=== PATIENT | female | born 1995 | race Caucasian/White ===

== ENCOUNTER 2017-06-01 08:39 | Emergency (ER) | payer SELFPAY ==
[~2017-06-01] VITALS: Ht 160 cm; Wt 52.0 kg
[~2017-06-01 08:39] MED LIST: DOXY100T PO; Z.0.NO CURRENT MEDS
[2017-06-01 08:47] VITALS: BP 106/64; PULSE 60; RESP 16; TEMP 97.1; O2SAT 100
[2017-06-01 09:05] LABS: BLOOD, URINE NEG (NEG); GLUCOSE,URINE NEG (NEG); KETONE, URINE NEG (NEG); NITRITE,URINE NEG (NEG)
[2017-06-01 09:11] LABS: METHOD OF COLLECTION CLEAN CATCH
[2017-06-01 09:12] LABS: URINE COLOR YELLOW (YELLW/STRAW)
[2017-06-01 09:13] LABS: BACTERIA, URINE FEW /hpf; COMMENT (UR) CULTURE INDICATED; CULTURE IF INDICATED CULTURE INDICATED; RBC, URINE 0-3 /hpf (0-3); SQUAMOUS EPITHELIAL CELL URINE > 8 /hpf (0-5)
[2017-06-01 09:22] VITALS: BP 108/71; PULSE 69; RESP 16; O2SAT 100
[2017-06-01] MEDS ORDERED: LIDOCAINE VISCOUS 2% SOLN 15 ML UDC SWISH-SWAL ONE (09:30)
[2017-06-01] MEDS ORDERED: ATROPINE/SCOPOLAM/HYOSCYAM/PB ELIXIR 10 ML CUP PO ONE (09:30)
[2017-06-01] MEDS ORDERED: ALUMINUM/MAGNESIUM/SIMETH 30 ML CUP PO ONE (09:30)
[2017-06-01] MEDS ORDERED: birth control PO (09:31)
--- NOTE | 2017-06-01 09:34 | PD ---
HPI Chief Complaint: Dizziness Time Seen by Provider: 09:19 Travel History International Travel<30 days: No Contact w/Intl Traveler<30days: No Traveled to known affect area: No History of Present Illness HPI This is a 22-year-old female who presents to the emergency department having had fairly sudden onset of abdominal discomfort, worse in the upper abdomen feeling like a burning radiating to the back, moderate severity, associated with lightheadedness and dizziness feeling like she is going to pass out. She said she felt like her vision was going and when she checked her blood pressure was in the 80s systolic. She says she had a similar episode about 3 weeks ago which subsided on its own and wasn't as bad. She also remembers in high school having a similar episode. She denies any fevers or chills, dysuria, hematuria, vaginal discharge. She says her last menstrual cycle was 1 week and a half ago. She doesn't think she could be . She denies any diarrhea. Her mother has a history of Miller's esophagus. She's been told she has GERD by a dentist who has noticed some deterioration of her teeth. PFSH Past Medical History Asthma: Yes (EXERCISE INDUCED RARELY) Diminished Hearing: No Immunizations Current: Yes Tetanus Vaccination: Unknown Influenza Vaccination: No ?: Not LMP: 1 1/2 weeks ago Past Surgical History Gynecologic Surgery: Yes (breast augmentation) Oral Surgery: Yes (wisdom teeth) Social History Alcohol Use: Yes (occas. beer) Tobacco Use: No Substance Use: No Allergies-Medications (Allergen,Severity, Reaction): Coded Allergies: Sulfa (Sulfonamide Antibiotics) (Unverified Allergy, Severe, HIVES, ) Reported Meds & Prescriptions Reported Meds & Active Scripts Active Reported [ control] 1 Tab PO DAILY Review of Systems Except as stated in HPI: all other systems reviewed are Neg Physical Exam Narrative GENERAL:Well appearing, no acute distress SKIN: Focused skin assessment warm and dry. HEAD: Atraumatic. Normocephalic. EYES: Pupils equal and round. No injection or drainage. ENT: Moist mucous membranes NECK: Trachea midline. CARDIOVASCULAR: Regular rate and rhythm. No murmur appreciated. RESPIRATORY: Clear to auscultation. Breath sounds equal bilaterally. GASTROINTESTINAL: Abdomen soft, mildly tender to palpation in the epigastrium with no rebound or guarding. MUSCULOSKELETAL: No obvious deformities. NEUROLOGICAL: Awake and alert. No obvious cranial nerve deficits. Moving all extremities. PSYCHIATRIC: Appropriate mood and affect; insight and judgment normal. Data Data Last Documented VS Vital Signs Date Time Temp Pulse Resp B/P (MAP) Pulse Ox O2 Delivery O2 Flow Rate FiO2 06/01/17 10:10 72 16 98/67 (77) 100 Room Air 06/01/17 08:47 97.1 Orders Orders Urinalysis - C+S If Indicated (06/01/17 08:45) Ed Urine Pregnancytest Poc (06/01/17 08:45) Urine Culture (06/01/17 09:00) Complete Blood Count With Diff (06/01/17 09:29) Comprehensive Metabolic Panel (06/01/17 09:29) ^ Insert Iv (06/01/17 09:29) Al-Mag Hy-Si 40-40-4 Mg/Ml Liq (Mag-Al P (06/01/17 09:30) Ezery-Rfllut-Vlczmf-Pb Liq ( Liq (06/01/17 09:30) Lidocaine 2% Viscous (Xylocaine 2% Visco (06/01/17 09:30) Lipase (06/01/17 09:55) Sodium Chlor 0.9% 1000 Ml Inj (Ns 1000 M (06/01/17 10:30) Labs Laboratory Tests Test 06/01/17 09:00 06/01/17 09:55 Urine Collection Type CLEAN CATCH Urine Color YELLOW Urine Turbidity CLEAR Urine pH 6.0 Urine Specific [place] 1.025 Urine Protein TRACE mg/dL Urine Glucose (UA) NEG mg/dL Urine Ketones NEG mg/dL Urine Occult Blood NEG Urine Nitrite NEG Urine Bilirubin NEG Urine Leukocyte Esterase NEG Urine RBC 0-3 /hpf Urine WBC 9-14 /hpf Urine Squamous Epithelial Cells > 8 /hpf Urine Bacteria FEW /hpf Microscopic Urinalysis Comment CULTURE INDICATED Urine Collection Time 09:00 White Blood Count 10.1 TH/MM3 Red Blood Count 4.59 MIL/MM3 Hemoglobin 13.5 GM/DL Hematocrit 40.3 % Mean Corpuscular Volume 87.9 FL Mean Corpuscular Hemoglobin 29.5 PG Mean Corpuscular Hemoglobin Concent 33.5 % Red Cell Distribution Width 12.6 % Platelet Count 264 TH/MM3 Mean Platelet Volume 7.7 FL Neutrophils (%) (Auto) 79.6 % Lymphocytes (%) (Auto) 12.9 % Monocytes (%) (Auto) 5.0 % Eosinophils (%) (Auto) 1.5 % Basophils (%) (Auto) 1.0 % Neutrophils # (Auto) 8.0 TH/MM3 Lymphocytes # (Auto) 1.3 TH/MM3 Monocytes # (Auto) 0.5 TH/MM3 Eosinophils # (Auto) 0.2 TH/MM3 Basophils # (Auto) 0.1 TH/MM3 CBC Comment DIFF FINAL Differential Comment Blood Urea Nitrogen 22 MG/DL Creatinine 0.83 MG/DL Random Glucose 74 MG/DL Total Protein 7.5 GM/DL Albumin 3.9 GM/DL Calcium Level 8.5 MG/DL Alkaline Phosphatase 29 U/L Aspartate Amino Transf (AST/SGOT) 22 U/L Alanine Aminotransferase (ALT/SGPT) 17 U/L Total Bilirubin 0.4 MG/DL Sodium Level 139 MEQ/L Potassium Level 3.6 MEQ/L Chloride Level 105 MEQ/L Carbon Dioxide Level 25.6 MEQ/L Anion Gap 8 MEQ/L Estimat Glomerular Filtration Rate 85 ML/MIN Lipase 162 U/L MDM Medical Decision Making Medical Screen Exam Complete: Yes Emergency Medical Condition: Yes Interpretation(s) afebrile, no tachycardia, normotensive no leukocytosis electrolytes within normal limits Urinalysis: Likely contaminated, symptoms are not consistent with urinary tract infection Hscta-ml-swuc is negative Differential Diagnosis Gastritis, peptic ulcer disease, pancreatitis, GERD Narrative Course This is a 22-year-old female who presents to the emergency department with abdominal discomfort and vomiting. She has a benign exam. Suspect she has gastritis or peptic ulcer disease based on her symptoms. Labs are all reassuring. Urinalysis demonstrates some white blood cells but it is contaminated with squamous epithelial cells and her symptoms are not at all consistent with urinary tract infection so I wouldn't treat this with antibiotics at this time. She feels better after a GI cocktail and IV fluids. I think she would benefit from follow-up with a syrup mixer and she'll be started on an antacid. Diagnosis Primary Impression: Gastritis Qualified Codes: K29.00 - Acute gastritis without bleeding Referrals: Pranav Zeng MD Patient Instructions: General Instructions Additional Instructions: If you develop severe or worsening abdominal pain, fever>100.4, persistent vomiting or inability to eat or drink return to the emergency department immediately. Follow up with a syrup mixer as an outpatient. Med/Other Pt SpecificInfo: Prescription(s) given Scripts Ranitidine (Ranitidine) 150 Mg Tab 150 MG PO BID for Heartburn Management, #60 TAB 0 Refills Prov: Carmen Corey MD 06/01/17 Disposition: 01 DISCHARGE HOME Condition: Stable Carmen Corey MD Jun 01, 2017 09:34
[2017-06-01 09:59] VITALS: BP 122/75
[2017-06-01 10:01] LABS: BASOPHIL # 0.1 TH/MM3 (0-0.2); EOSINOPHIL # 0.2 TH/MM3 (0-0.4); EOSINOPHIL % 1.5 % (0.0-4.0); HEMATOCRIT 40.3 % (35.0-46.0); HEMO FLAGS DIFF FINAL; LYMPH % 12.9 % (9.0-44.0); LYMPHOCYTE # 1.3 TH/MM3 (1.0-4.8); MEAN CELL VOLUME 87.9 FL (80.0-100.0); MEAN CORPUSCULAR HEMOGLOBIN 29.5 PG (27.0-34.0); MEAN CORPUSCULAR HGB CONC 33.5 % (32.0-36.0); NEUT % 79.6 % (16.0-70.0); PLATELET COUNT 264 TH/MM3 (150-450); RED BLOOD COUNT 4.59 MIL/MM3 (4.00-5.30); RED CELL DISTRIBUTION WIDTH 12.6 % (11.6-17.2); WHITE BLOOD COUNT 10.1 TH/MM3 (4.0-11.0)
[2017-06-01 10:10] VITALS: BP 98/67; PULSE 72; RESP 16; O2SAT 100
[2017-06-01 10:14] LABS: CHLORIDE 105 MEQ/L (98-107); POTASSIUM 3.6 MEQ/L (3.5-5.1); SODIUM (NA) 139 MEQ/L (136-145)
[2017-06-01 10:15] LABS: ANION GAP 8 MEQ/L (5-15); BICARBONATE 25.6 MEQ/L (21.0-32.0); BLOOD UREA NITROGEN 22 MG/DL (7-18)
[2017-06-01 10:18] LABS: ALT (GPT) 17 U/L (10-53); GLOMERULAR FILTRATION RATE 85 ML/MIN (>89)
[2017-06-01 10:19] LABS: TOTAL BILIRUBIN ADULT 0.4 MG/DL (0.2-1.0)
[2017-06-01 10:21] LABS: ALKALINE PHOSPHATASE 29 U/L (45-117)
[2017-06-01 10:30] LABS: AST (GOT) 22 U/L (15-37)
[2017-06-01] MEDS ORDERED: SODIUM CHLOR 0.9% 1000 ML INJ 1,000 ML IV ONE (10:30)
[2017-06-01] MEDS ORDERED: RANI150T PO (10:37)
[2017-06-01 11:04] VITALS: BP 108/65; PULSE 64; RESP 16; O2SAT 100
[2017-06-01 11:44] VITALS: BP 110/65
== END 2017-06-01 11:49 | disposition home or self-care (01) ==
LOC: PHED 08:39
DX: K29.00 Acute gastritis without bleeding (principal); R82.90 Unspecified abnormal findings in urine
CPT/HCPCS: 80053; 81001; 83690; 84703; 85025; 87086; 96360; 99284; J7030